=== PATIENT | female | born 1975 | race Caucasian/White ===

== ENCOUNTER 2017-02-25 17:08 | Observation (INO) | payer OTHER ==
[~2017-02-25] VITALS: Ht 154.9 cm; Wt 78.9 kg
[2017-02-25 17:26] VITALS: BP 124/99
--- NOTE | 2017-02-25 17:32 | NUR ---
PT TRIAGED, AMBULATED TO ER LOBBY; WAITING FOR ER BED. ERMD AWARE OF PATIENT STATUS.
--- NOTE | 2017-02-25 19:52 | NUR ---
PT TAKEN TO BED 2
--- NOTE | 2017-02-25 19:55 | NUR ---
41/F CAME IN W C/O VAGINAL BLEEDING X 3 WEEKS. PT REPORTS HX OF HEAVY BLEEDING AND HAS OBGYN FOLLOWUP TO BE SCHEDULED, BUT PT REPORTS SHE HAS NOT HAVE PROLONGED BLEEDING PROMPTING THIS ER VISIT. REPORTS INTERMITTENT LOWER ABD PAIN, DENIES ANY PAIN AT THIS TIME. ALSO REPORTS PRODUCTIVE COUGHING WITH GREEN SPUTUM AND FEVER X 4 DAYS. PT CURRENTLY AFEBRILE. PMH: TUBAL LIGATION,DENIES RX, TOOK TYLENOL AT 1300 TODAY
--- NOTE | 2017-02-25 20:54 | NUR ---
Jessica voss in ED - 02/25/17 at 2057 by ANNELIESE Ultrasound at bedside.
--- NOTE | 2017-02-25 21:04 | NUR ---
Ultrasound at bedside.
[2017-02-25 21:09] LABS: BASOPHILS # (AUTO) 0.2 K/uL (0.00-0.22); HEMATOCRIT 40.9 % (36-48); HEMOGLOBIN 13.4 g/dL (12.0-16.0); LYMPHOCYTES # (AUTO) 1.5 K/uL (2.5-16.5); MEAN CORPUSCULAR HEMOGLOBIN 28 pg (27-31); MEAN CORPUSCULAR HGB CONC 33 g/dL (33-37); MEAN CORPUSCULAR VOLUME 84 fL (80-94); MONOCYTES # (AUTO) 0.7 K/uL (0.8-1.0); NEUTROPHILS # (AUTO) 3.4 K/uL (1.8-7.7); PLATELET COUNT (AUTO) 275 K/uL (140-450); RED BLOOD CELL COUNT(AUTO) 4.86 MIL/uL (4.20-5.40); RED CELL DISTRIBUTION WIDTH 14.2 % (11.6-13.7); WHITE BLOOD COUNT (AUTO) 5.8 K/uL (4.8-10.8)
[2017-02-25 21:25] LABS: ANION GAP 12.7 (8-16); CARBON DIOXIDE 27.8 mmol/L (21-32); POTASSIUM 3.5 mmol/L (3.5-5.1)
[2017-02-25 21:31] LABS: ALBUMIN 3.7 g/dL (3.4-5.0); TOTAL BILIRUBIN 0.3 mg/dL (0.0-1.0)
[2017-02-25] MEDS ORDERED: ACETAMINOPHEN EXTRA STRENGTH 500 MG TAB ONE (22:08)
--- NOTE | 2017-02-25 22:30 | NUR ---
Patient appears to be resting comfortably in bed. Vital Signs within normal limits. Respirations even and unlabored.
[2017-02-25] MEDS ORDERED: MORPHINE SULFATE 2 MG/ML SYR IVP PRN (22:35)
[2017-02-25] MEDS ORDERED: ONDANSETRON 4 MG/2 ML VIAL IVP PRN (22:35)
[2017-02-25] MEDS ORDERED: ACETAMINOPHEN EXTRA STRENGTH 500 MG TAB PO PRN (22:35)
--- NOTE | 2017-02-25 23:11 | NUR ---
Patient will be admitted to care of [facility]. Admited to MS. Will go to room 104B. Belongings list completed. BEDSIDE Report to EDIL GIL. IV SL AND PATENT
--- NOTE | 2017-02-25 23:30 | NUR ---
PT ARRIVED FROM ER VIA WHEELCHAIR. PT IS AAOX4, ON ROOM AIR. NO SIGNS OF ACUTE DISTRESS NOTED, RESPIRATION EVEN AND UNLABORED. IV ACCESS INTACT, PATENT AND ASYMPTOMATIC. MRSA COLLECTED. PT IS AMBULATORY WITH BATHROOM PRIVILEGES. BED IN LOW POSITION, BILATERAL HALF SIDE RAIL UP, CALL LIGHT WITHIN REACH, WILL CONTINUE TO MONITOR.
[2017-02-26] VITALS: BP 116/70
--- NOTE | 2017-02-26 06:36 | NUR ---
PATIENT HAS BEEN SCREENED AND CATEGORIZED LOW NUTRITION RISK. PATIENT WILL BE SEEN WITHIN 7 DAYS OF ADMISSION. 03/03/17 KULWINDER AMEZCUA MS, RDN
--- NOTE | 2017-02-26 07:25 | NUR ---
ENDORSED PT TO AM NURSE FOR CONTINUITY OF CARE. PT IS IN STABLE CONDITION.
--- NOTE | 2017-02-26 07:27 | NUR ---
RECEIVED PATIENT REPORT AT BEDSIDE FROM NIGHT NURSE. PATIENT IS AAOX4 AND SHOWS NO S/S OF ACUTE DISTRESS AT THIS TIME. SKIN INTACT. DENIES PAIN. MODERATE VAGINAL BLEEDING SEEN ON PAD, PATIENT STATES, "I AM ON MY PERIOD." NOTED IV ON THE LEFT HAND SL. PATIENT WAS EXPLAINED POC FOR TODAY AND VERBALIZED UNDERSTANDING. SAFETY PRECAUTIONS IN PLACE, BED IN LOW POSITION WITH CALL LIGHT WITHIN REACH.
[2017-02-26 07:42] LABS: BASOPHILS # (AUTO) 0.1 K/uL (0.00-0.22); BASOPHILS % (AUTO) 3.5 % (0.0-2.0); EOSINOPHILS % (AUTO) 0.5 % (0.0-4.0); HEMATOCRIT 40.6 % (36-48); HEMOGLOBIN 13.4 g/dL (12.0-16.0); LYMPHOCYTES # (AUTO) 1.7 K/uL (2.5-16.5); LYMPHOCYTES % (AUTO) 40.5 % (20.5-51.1); MEAN CORPUSCULAR HEMOGLOBIN 28 pg (27-31); MEAN CORPUSCULAR HGB CONC 33 g/dL (33-37); MEAN CORPUSCULAR VOLUME 84 fL (80-94); MONOCYTES # (AUTO) 0.5 K/uL (0.8-1.0); MONOCYTES % (AUTO) 10.9 % (1.7-9.3); NEUTROPHILS % (AUTO) 44.6 % (42.2-75.2); PLATELET COUNT (AUTO) 240 K/uL (140-450); RED BLOOD CELL COUNT(AUTO) 4.87 MIL/uL (4.20-5.40); RED CELL DISTRIBUTION WIDTH 14.2 % (11.6-13.7); WHITE BLOOD COUNT (AUTO) 4.3 K/uL (4.8-10.8)
[2017-02-26 08:00] VITALS: BP 139/75
[2017-02-26 08:03] LABS: ALBUMIN 3.6 g/dL (3.4-5.0); ANION GAP 13.6 (8-16); CARBON DIOXIDE 26.5 mmol/L (21-32); CREATININE 0.9 mg/dL (0.6-1.3); POTASSIUM 3.1 mmol/L (3.5-5.1); TOTAL BILIRUBIN 0.2 mg/dL (0.0-1.0)
--- NOTE | 2017-02-26 09:19 | NUR ---
RECEIVED ORDERS FROM DR SRIVASTAVA FOR CXR FOR COUGH, ROBITUSSIN 10ML Q6H PRN FOR COUGH, AND INFLUENZA A AND B. WILL FOLLOW THROUGH WITH ORDERS.
[2017-02-26] MEDS ORDERED: guaiFENesin DM 200/20 MG-10 ML 10 ML UDC PO PRN (09:20)
--- NOTE | 2017-02-26 09:42 | NUR ---
PATIENT C/O HEADACHE AND COUGH. GAVE PATIENT ROBITUSSIN DM 10 ML AND TYLENOL 500MG PO. PATIENT'S NEEDS MET AT THIS TIME. BED IN LOW POSITION WITH CALL LIGHT WITHIN REACH.
[2017-02-26] MEDS ORDERED: POTASSIUM CHLORIDE 10 MEQ TABER PO SCH (11:00)
[2017-02-26] MEDS ORDERED: DEXT5SYR3 PO (11:16)
[2017-02-26] MEDS ORDERED: ACET-2166 PO (11:16)
--- NOTE | 2017-02-26 11:20 | NUR ---
PATIENT NOTIFIED OF DC ORDER. PATIENT VERBALIZED UNDERSTANDING.
--- NOTE | 2017-02-26 12:45 | NUR ---
PT HAS BEEN DISCHARGED. ALL DISCHARGE INSTRUCTIONS WERE GIVEN. ALL QUESTIONS ANSWERED. PATIENT VERBALIZED UNDERSTANDING OF CONTINUITY OF CARE. ALL BELONGINGS IN PATIENTS POSSESSION, IV DISCONTINUED WITH CANNULA INTACT. WRISTBANDS REMOVED. PATIENT REFUSED WHEELCHAIR AND AMB OFF UNIT WITH FAMILY PRESENT AT SIDE. PATIENT LEFT IN STABLE CONDITION.
== END 2017-02-26 12:45 | disposition home or self-care (01) ==
LOC: MED 17:08 → MTU 22:37
PROVIDERS: ADMIT Hospitalist; ATTEND Hospitalist
DX: R05 Cough (principal); R50.9 Fever, unspecified; N89.8 Other specified noninflammatory disorders of vagina; Z85.43 Personal history of malignant neoplasm of ovary; Z80.41 Family history of malignant neoplasm of ovary
CPT/HCPCS: 36415; 76830; 80053; 85025; 85610; 85730; 86304; 86900; 86901; 87081; 87804; 99285; G0378; Q0092

== ENCOUNTER 2017-05-20 08:30 | Emergency (ER) | payer OTHER ==
[~2017-05-20] VITALS: Ht 154.9 cm; Wt 82.1 kg
[~2017-05-20 08:30] MED LIST: ACET-2166 PO; DEXT5SYR3 PO
[2017-05-20 08:39] VITALS: BP 134/90
[2017-05-20] MEDS ORDERED: MORPHINE SULFATE 4 MG/ML SYR IM ONE (08:50)
[2017-05-20] MEDS ORDERED: KETOROLAC 60 MG/2 ML VIAL IM ONE (08:50)
--- NOTE | 2017-05-20 09:00 | NUR ---
41/F BIB C/O LEFT LOWER BACK SHARP PAIN RADIATS TO LLL X 5 DAYS. HX : WILLIAM 7 YRS AGO & L SCIATICA IN 2006. DENIES N/V/D; SKIN IS PINK/WARM/DRY; AAOX4 WITH EVEN AND STEADY GAIT; LUNGS CLEAR BL; HR EVEN AND REGULAR. PATIENT STATES PAIN OF 10/10 AT THIS TIME. PATIENT POSITIONED FOR COMFORT; HOB ELEVATED; BEDRAILS UP X2; BED DOWN. ER MD MADE AWARE OF PT STATUS.
--- NOTE | 2017-05-20 09:33 | NUR ---
Patient STATED LEFT LOWER BACK PAIN 5/10 AT THIS TIME. PT appears to be resting comfortably in bed. BP 131/55; DENIES GONSALEZ AT THIS TIME, Respirations even and unlabored.WILL CONTINUE TO MONITOR
[2017-05-20 10:05] VITALS: BP 147/78
--- NOTE | 2017-05-20 10:05 | NUR ---
Patient discharged with v/s stable. Written and verbal after care instructions given and explained. Patient alert, oriented and verbalized understanding of instructions. Ambulatory with to car. All questions addressed prior to discharge. ID band removed. Patient advised to follow up with PMD. Rx of NORCO 5MG-325GM TAB, FLEXERIL 10 MG TAB & IBUPROFEN 600MG TAB given. Patient educated on indication of medication including possible reaction and side effects. Opportunity to ask questions provided and answered.
== END 2017-05-20 10:05 | disposition home or self-care (01) ==
LOC: MED 08:30
DX: M54.42 Lumbago with sciatica, left side (principal); Z88.5 Allergy status to narcotic agent
CPT/HCPCS: 81002; 81025; 96372; 99284; J1885; J2270

== ENCOUNTER 2017-10-20 19:50 | Emergency (ER) | payer OTHER ==
[~2017-10-20] VITALS: Ht 154.9 cm; Wt 79.4 kg
[2017-10-20 19:53] VITALS: BP 157/92
--- NOTE | 2017-10-20 20:06 | NUR ---
Patient to bed 11. RN evaluating patient at bedside.
--- NOTE | 2017-10-20 20:10 | NUR ---
PT PRESENTED ER WITH C/O PAIN AND DIZZINESS. PT HAS A GONSALEZ X 3 HOURS. PT STATED SHE FEELS COLD AND CLAMMY AND GETS SHAKY. MEDICAL HX IS HTN, THYROID AND CHRONIC BACK PAIN AND PRE-DIABETIC. ALLERGIES IS CODEINE. HAS SOME NAUSEA, DENIES VOMITING; SKIN IS PINK/WARM/DRY; AAOX4 WITH EVEN AND STEADY GAIT; HR EVEN AND REGULAR; PT DENIES ANY FEVER, CP, SOB, OR COUGH AT THIS TIME; PATIENT STATES PAIN OF 5/10 AT THIS TIME; VSS; PATIENT POSITIONED FOR COMFORT; HOB ELEVATED; BEDRAILS UP X2; BED DOWN. ER MD MADE AWARE OF PT STATUS.
[2017-10-20] MEDS ORDERED: fentaNYL 0.05 MG/ML VIAL IVP ONE (21:00)
[2017-10-20] MEDS ORDERED: ONDANSETRON 4 MG/2 ML VIAL IVP ONE (21:00)
[2017-10-20] MEDS ORDERED: MECLIZINE 25 MG TAB PO ONE (21:00)
--- NOTE | 2017-10-20 21:03 | NUR ---
engineering specialist technician at bedside for CXR.
--- NOTE | 2017-10-20 21:26 | NUR ---
PT GOING TO CT
[2017-10-20 21:30] LABS: BASOPHILS % (AUTO) 0.3 % (0.0-2.0); EOSINOPHILS % (AUTO) 0.3 % (0.0-4.0); HEMATOCRIT 34.8 % (36-48); HEMOGLOBIN 11.3 g/dL (12.0-16.0); LYMPHOCYTES # (AUTO) 1.3 K/uL (2.5-16.5); MEAN CORPUSCULAR HEMOGLOBIN 26 pg (27-31); MEAN CORPUSCULAR HGB CONC 33 g/dL (33-37); MEAN CORPUSCULAR VOLUME 79.5 fL (80-94); MONOCYTES # (AUTO) 0.5 K/uL (0.8-1.0); MONOCYTES % (AUTO) 4.5 % (1.7-9.3); NEUTROPHILS # (AUTO) 8.4 K/uL (1.8-7.7); NEUTROPHILS % (AUTO) 81.9 % (42.2-75.2); PLATELET COUNT (AUTO) 353 K/uL (140-450); RED BLOOD CELL COUNT(AUTO) 4.38 MIL/uL (4.20-5.40); RED CELL DISTRIBUTION WIDTH 17.1 % (11.6-13.7); WHITE BLOOD COUNT (AUTO) 10.2 K/uL (4.8-10.8)
[2017-10-20 21:43] LABS: ANION GAP 10.5 (8-16); CARBON DIOXIDE 25.4 mmol/L (21-32); CREATININE 0.7 mg/dL (0.6-1.3); POTASSIUM 3.9 mmol/L (3.5-5.1)
[2017-10-20 21:50] LABS: ALBUMIN 3.6 g/dL (3.4-5.0); TOTAL BILIRUBIN 0.3 mg/dL (0.0-1.0)
[2017-10-20 21:57] LABS: CREATINE KINASE MB 0.2 ng/mL (0-3.6)
[2017-10-20] MEDS ORDERED: KETOROLAC 30 MG/ML VIAL IVP ONE (23:05)
[2017-10-21 00:13] VITALS: BP 146/77
--- NOTE | 2017-10-21 00:13 | NUR ---
Patient discharged with v/s stable. Written and verbal after care instructions given and explained. Patient alert, oriented and verbalized understanding of instructions. Ambulatory with steady gait. All questions addressed prior to discharge. ID band removed. Patient advised to follow up with PMD. Rx of MECLIZINE HYDROCHLORIDE was given. Patient educated on indication of medication including possible reaction and side effects. Opportunity to ask questions provided and answered.
== END 2017-10-21 00:13 | disposition home or self-care (01) ==
LOC: MED 19:50
DX: R42 Dizziness and giddiness (principal); R94.31 Abnormal electrocardiogram [ECG] [EKG]; Z88.8 Allergy status to other drugs, medicaments and biological substances; Z79.899 Other long term (current) drug therapy
CPT/HCPCS: 36415; 70450; 71045; 80053; 81002; 81025; 82550; 82553; 82948; 83690; 84484; 85025; 93005; 96374; 96375; 99285; J1885; J2405; J3010; J8597; Q0092

== ENCOUNTER 2018-05-21 22:00 | Emergency (ER) | payer OTHER ==
[~2018-05-21] VITALS: Ht 154.9 cm; Wt 80.9 kg
[2018-05-21 22:07] VITALS: BP 139/85
--- NOTE | 2018-05-21 22:10 | NUR ---
TO BED # 04 AMBULATORY, REPORT GIVEN TO COLE GIL
--- NOTE | 2018-05-21 22:16 | NUR ---
Patient being evaluated by physician at bedside.
--- NOTE | 2018-05-21 22:18 | NUR ---
PT C/O LUMBAR REGION BACK PAIN 09/05 ACHING SINCE MONDAY S/P MOVING FURNITURE. DENIES RADIATION. HX OF SCIATICA BUT STATES IT FEELS DIFFERENT. ABLE TO AMBULATE WITH STEADY GAIT.
[2018-05-21] MEDS ORDERED: KETOROLAC 30 MG/ML VIAL IM ONE (23:30)
--- NOTE | 2018-05-21 23:37 | NUR ---
PT TAKEN TO CT
--- NOTE | 2018-05-21 23:45 | NUR ---
PT BACK FROM CT
[2018-05-22 00:39] VITALS: BP 135/75
== END 2018-05-22 00:39 | disposition home or self-care (01) ==
LOC: MED 22:00
DX: S39.012A Strain of muscle, fascia and tendon of lower back, initial encounter (principal); Z88.5 Allergy status to narcotic agent; Z79.899 Other long term (current) drug therapy; Z79.1 Long term (current) use of non-steroidal anti-inflammatories (NSAID); X50.9XXA Other and unspecified overexertion or strenuous movements or postures, initial encounter; Y93.89 Activity, other specified; Y92.89 Other specified places as the place of occurrence of the external cause; Y99.8 Other external cause status
CPT/HCPCS: 72131; 81002; 81025; 96372; 99284; J1885

== ENCOUNTER 2018-08-12 21:30 | Emergency (ER) | payer OTHER ==
[~2018-08-12] VITALS: Ht 154.9 cm; Wt 80.7 kg
[2018-08-12 21:40] VITALS: BP 140/74
--- NOTE | 2018-08-12 21:40 | NUR ---
PT EVALUATED BY DR EVANS. C/O LOWER BACK PAIN >6 MONTHS. STATES LOWER BACK PAIN TREATED AND RETURNS. NON-RADIATING. CMS INTACT BILAT LOWER EXTREMITIES. VSS. POSITIONED IN BED FOR COMFORT. CONTINUE TO MONITOR.
--- NOTE | 2018-08-12 21:40 | NUR ---
TO BED # 06 AMBULATORY
[2018-08-12] MEDS ORDERED: fentaNYL 0.05 MG/ML VIAL IM ONE (22:45)
[2018-08-12] MEDS ORDERED: LORazepam 2 MG/ML VIAL IM ONE (22:45)
--- NOTE | 2018-08-13 00:13 | NUR ---
DISCHARGE PAPERS GIVEN TO PT. 04/08 LOWER BACK PAIN BUT TOLLERABLE. CMS INTACT BILAT LOWER EXTREMITIES. RX OF TRAMADOL GIVEN. SIDE EFFECTS EXPLAINED. INSTRUCTED TO F/U WITH PCP AND WHEN TO RETURN TO ER. PT VERBALLIZED UNDERSTANDING OF DC INSTRUCTIONS. ALL QUESTIONS ANSWERED.
== END 2018-08-13 00:13 | disposition home or self-care (01) ==
LOC: MED 21:30
DX: S39.012A Strain of muscle, fascia and tendon of lower back, initial encounter (principal); Z88.5 Allergy status to narcotic agent; Z79.1 Long term (current) use of non-steroidal anti-inflammatories (NSAID); Z79.899 Other long term (current) drug therapy; X58.XXXA Exposure to other specified factors, initial encounter; Y93.89 Activity, other specified; Y92.89 Other specified places as the place of occurrence of the external cause; Y99.0 Civilian activity done for income or pay
CPT/HCPCS: 96372; 99283; J2060; J3010

== ENCOUNTER 2019-01-15 12:07 | Emergency (ER) | payer OTHER ==
[~2019-01-15] VITALS: Ht 154.9 cm; Wt 80.3 kg
[2019-01-15 12:31] VITALS: BP 152/60
--- NOTE | 2019-01-15 12:31 | NUR ---
Patient ambulated to bed 8. RN evaluating patient at bedside.
--- NOTE | 2019-01-15 12:52 | NUR ---
43/F requesting to have her blood pressure checked. Pt states she was at her doctor's office to have her blood pressure checked but he was not in office. Pt denies any changes in vision. Denies headache. Denies chest pain or sob. AOX4, clear speech. Hx denies
[2019-01-15 13:40] LABS: BASOPHILS % (AUTO) 0.4 % (0.0-2.0); EOSINOPHILS # (AUTO) 0.1 K/uL (0-0.4); EOSINOPHILS % (AUTO) 0.8 % (0.0-4.0); HEMOGLOBIN 10.2 g/dL (12.0-16.0); LYMPHOCYTES # (AUTO) 2.5 K/uL (2.5-16.5); MEAN CORPUSCULAR HEMOGLOBIN 25 pg (27-31); MEAN CORPUSCULAR HGB CONC 32 g/dL (33-37); MEAN CORPUSCULAR VOLUME 77.2 fL (80-94); MONOCYTES # (AUTO) 0.6 K/uL (0.8-1.0); MONOCYTES % (AUTO) 7.4 % (1.7-9.3); NEUTROPHILS # (AUTO) 4.7 K/uL (1.8-7.7); NEUTROPHILS % (AUTO) 59.4 % (42.2-75.2); PLATELET COUNT (AUTO) 342 K/uL (140-450); RED BLOOD CELL COUNT(AUTO) 4.15 MIL/uL (4.20-5.40); RED CELL DISTRIBUTION WIDTH 18.6 % (11.6-13.7); WHITE BLOOD COUNT (AUTO) 7.9 K/uL (4.8-10.8)
[2019-01-15 13:45] LABS: APPEARANCE,URINE HAZY (CLEAR); BILIRUBIN,URINE NEGATIVE (NEGATIVE); BLOOD, URINE NEGATIVE (NEGATIVE); COLOR,URINE YELLOW (YELLOW); LEUKOCYTE ESTERASE ,URINE TRACE (NEGATIVE); NITRITE, URINE NEGATIVE (NEGATIVE); UGLUCOSE NEGATIVE (NEGATIVE)
[2019-01-15 13:55] LABS: ANION GAP 13.7 (8-16); CARBON DIOXIDE 25.5 mmol/L (21-32); CREATININE 0.7 mg/dL (0.6-1.3); POTASSIUM 4.2 mmol/L (3.5-5.1)
[2019-01-15 13:57] LABS: RBC,URINE 0-5 /HPF (0-5)
[2019-01-15 14:11] LABS: ALBUMIN 3.4 g/dL (3.4-5.0); THYROID STIMULATING HORMONE 2.98 uIU/mL (0.34-3.74); TOTAL BILIRUBIN 0.2 mg/dL (0.0-1.0)
[2019-01-15 15:03] VITALS: BP 136/76
--- NOTE | 2019-01-15 15:03 | NUR ---
Patient discharged with v/s stable. Written and verbal after care instructions given and explained. Patient verbalized understanding. Ambulatory with steady gait. All questions addressed prior to discharge. Advised to follow up with PMD.
== END 2019-01-15 15:03 | disposition home or self-care (01) ==
LOC: MED 12:07
DX: R53.83 Other fatigue (principal); D64.9 Anemia, unspecified; G89.29 Other chronic pain; M54.9 Dorsalgia, unspecified; Z98.890 Other specified postprocedural states; Z79.899 Other long term (current) drug therapy; Z88.5 Allergy status to narcotic agent
CPT/HCPCS: 36415; 71045; 80053; 81001; 81025; 84443; 84484; 85025; 87086; 93005; 99284; Q0092

== ENCOUNTER 2019-08-31 15:08 | Emergency (ER) | payer OTHER ==
[~2019-08-31] VITALS: Ht 154.9 cm; Wt 72.6 kg
[2019-08-31 15:28] VITALS: BP 129/86
--- NOTE | 2019-08-31 15:36 | NUR ---
URINE CUP HANDED TO PT FOR SAMPLE
--- NOTE | 2019-08-31 16:51 | NUR ---
PT TAKEN TO BED 2. AMBULATED WITH USE OF WALKER.
[2019-08-31] MEDS ORDERED: KETOROLAC 60 MG/2 ML VIAL IM ONE (17:05)
[2019-08-31] MEDS ORDERED: DIAZEPAM 5 MG TAB PO ONE (17:05)
--- NOTE | 2019-08-31 17:10 | NUR ---
43/F C/O EXACERBATION OF LOWER BACK PAIN X >1 WK---SEEN BY PMD RECENTLY ORDERED WALKER AND MOTRIN----PT IS AMBULATORY WITH USE OF WALKER. NO RECENT INJURY---PAIN WORSENING PT HAS HAD IMAGING DONE OUTPATIENT. HX---BACK PAIN, HTN RX---TRAMADOL 50MG, MELOXICAM 15MG, BACLOFEN 20MG, HYDROCHLOROTHIAZINE 25MG, IBUPROFEN 800MG, TYLENOL 500MG
--- NOTE | 2019-08-31 18:05 | NUR ---
Patient discharged with v/s stable. Written and verbal after care instructions given and explained. Patient verbalized understanding. Ambulatory with steady gait WITH WALKER. TO WAIT IN LOBBY FOR TO PICK HER UP. All questions addressed prior to discharge. Advised to follow up with PMD IN 2-3 DAYS.
[2019-08-31 18:06] VITALS: BP 115/62
== END 2019-08-31 18:05 | disposition home or self-care (01) ==
LOC: MED 15:08
DX: M54.5 Low back pain (principal); Z88.6 Allergy status to analgesic agent; Z79.899 Other long term (current) drug therapy
CPT/HCPCS: 81002; 81025; 96372; 99283; J1885

== ENCOUNTER 2020-04-13 07:22 | Emergency (ER) | payer OTHER ==
[~2020-04-13] VITALS: Ht 154.9 cm; Wt 84.8 kg
[2020-04-13 07:25] VITALS: BP 128/81
--- NOTE | 2020-04-13 07:31 | NUR ---
AMBULATED TO BED 4
--- NOTE | 2020-04-13 07:35 | NUR ---
44 Y/O F BROUGHT IN FROM HOME WITH C/C RIGHT HAND NUMBNESS. PT STATES THREE WEEKS AGO, SHE WAS WATERING HER GARDEN AND BEGAN EXPERIENCING NUMBNESS AND TINGLING TO HER HAND. PT STATES IT WOULD GO AWAY, HOWEVER, THREE DAYS AGO, THE NUMBNESS/TINGLING IS CONSTANT. PT DESCRIBES TINGLING "ANTS IN HER ARM," CONSTANT, NON-RADIATING. PT DENIES TAKING ANY MEDICATIONS PRIOR. PT STATES ASSOCIATED BLURRY VISION. PT DENIES N/V/, HEADACHE, SOB, CHEST PAIN, FEVER/CHILLS, COLD-LIKE SYMPTOMS, COUGH. PT PLACED ONTO TRAFFIC AGENT. CAPILLARY REFILL IMMEDIATE. NO EDEMA NOTED TO RIGHT HAND. LUNG SOUNDS CTA. RESPIRATIONS EVEN/UNLABORED. BED LOCKED IN LOWEST POSITION, SIDE RAILS X 1. PMH: HTN, CHRONIC BACK PAIN MEDS: LISINOPRIL (LAST TAKEN 01/2020), IBUPROFEN, FLEXERIL (LAST TAKEN 11/2019) ALLERGIES: CODEINE
--- NOTE | 2020-04-13 07:48 | NUR ---
DR. BRYANT IS EVALUATING PATIENT AT BEDSIDE.
[2020-04-13] MEDS ORDERED: KETOROLAC 30 MG/ML VIAL IM ONE (08:00)
[2020-04-13] MEDS ORDERED: diazePAM 5 MG TAB PO ONE (08:00)
--- NOTE | 2020-04-13 08:11 | NUR ---
BOBBIN PRESSER DISCONNECTED PT FROM PLANER HAND, TRANSPORTED PT VIA WHEELCHAIR TO CT.
--- NOTE | 2020-04-13 08:23 | NUR ---
PT RETURNED FROM CT VIA WHEELCHAIR. PT AMBULATED BACK ONTO BED AND PLACED ONTO ELECTRICAL WIRER. BLANKET PROVIDED AND LIGHTS DIM PER PT REQUEST. RESPIRATIONS EVEN/UNLABORED. BED LOCKED IN LOWEST POSITION, SIDE RAILS X 1, CALL LIGHT IN REACH.
--- NOTE | 2020-04-13 08:52 | NUR ---
PT PRESENTS IN SEMI-FOWLERS POSITION WITH BOTH EYES CLOSED. PT STATES POSITIVE RELIEF WITH MEDICATION; PT STATES SHE IS ABLE TO MOVE HAND AND FINGERTIPS FREELY WITH "A LITTLE NUMBNESS" TO FINGER TIPS. PAIN 0/10. PRE WAVE ASSEMBLER IN PLACE. RESPIRATIONS EVEN/UNLABORED. BED LOCKED IN LOWEST POSITION, SIDE RAILS X 1, CALL LIGHT IN REACH.
[2020-04-13 09:23] VITALS: BP 121/56
--- NOTE | 2020-04-13 09:23 | NUR ---
Patient discharged with v/s stable. Written and verbal after care instructions given and explained. Patient alert, oriented and verbalized understanding of instructions. Ambulatory with steady gait. All questions addressed prior to discharge. ID band removed. Patient advised to follow up with PMD. Rx of VALIUM, NAPROSYN given. Patient educated on indication of medication including possible reaction and side effects. Opportunity to ask questions provided and answered.
== END 2020-04-13 09:23 | disposition home or self-care (01) ==
LOC: MED 07:22
DX: R20.2 Paresthesia of skin (principal); G89.29 Other chronic pain; M54.5 Low back pain; M79.601 Pain in right arm; I10 Essential (primary) hypertension; Z88.5 Allergy status to narcotic agent; Z79.899 Other long term (current) drug therapy
CPT/HCPCS: 70450; 72125; 96372; 99285; J1885

== ENCOUNTER 2020-08-29 20:30 | Emergency (ER) | payer OTHER ==
[~2020-08-29] VITALS: Ht 154.9 cm; Wt 80.3 kg
[2020-08-29 20:34] VITALS: BP 150/81
--- NOTE | 2020-08-29 20:34 | NUR ---
TO BED AMBULATORY
--- NOTE | 2020-08-29 20:40 | NUR ---
PT. IS A 44 Y/O FEMALE THAT CAME INTO ED WITH C/O OF IRRIATION IN VAGINA. PT. STATES THAT SHE HAS PAIN IN THE OUTER PART OF HER VAGINA WHEN WALKING. PT. STATES HER PAIN AT A 8/10 WHEN WALKING, BUT 0/10 WHEN LAYING IN BED. PER PT. THERE IS NO ABNORMAL DISCHARGE AND DENIES ITCHING/BURNING/URGENCY TO URINATE. DENIES N/V/D; SKIN IS PINK/WARM/DRY; AAOX4 WITH EVEN AND STEADY GAIT; HR EVEN AND REGULAR; PT DENIES ANY FEVER, CP, SOB, OR COUGH AT THIS TIME; VSS; PATIENT POSITIONED FOR COMFORT; HOB ELEVATED; BEDRAILS UP X2; BED DOWN. ER MADE AWARE OF PT STATUS. MED HX: ANEMIA ALLERGIES: CODEINE
--- NOTE | 2020-08-29 21:17 | NUR ---
HAN ALEXANDER AT BEDSIDE FOR MEDICAL EVALUATION.
--- NOTE | 2020-08-29 21:18 | NUR ---
Female Academic Dean accompanied female patient for vaginal exam.
[2020-08-29] MEDS ORDERED: IBUP-2213 PO (21:44)
[2020-08-29] MEDS ORDERED: CIPR500T4 PO (21:44)
[2020-08-29 21:49] VITALS: BP 150/81
--- NOTE | 2020-08-29 21:49 | NUR ---
Patient discharged with v/s stable. Written and verbal after care instructions given and explained. Patient alert, oriented and verbalized understanding of instructions. Ambulatory with steady gait. All questions addressed prior to discharge. ID band removed. Patient advised to follow up with PMD. Rx of CIPRO AND IBUPROFEN given. Patient educated on indication of medication including possible reaction and side effects. Opportunity to ask questions provided and answered.
== END 2020-08-29 21:49 | disposition home or self-care (01) ==
LOC: MED 20:30
DX: N39.0 Urinary tract infection, site not specified (principal); I10 Essential (primary) hypertension; Z98.890 Other specified postprocedural states; Z88.5 Allergy status to narcotic agent; Z79.899 Other long term (current) drug therapy
CPT/HCPCS: 81002; 81025; 99283

== ENCOUNTER 2020-12-15 21:03 | Emergency (ER) | payer OTHER ==
[~2020-12-15] VITALS: Ht 154.9 cm; Wt 79.4 kg
[~2020-12-15 21:03] MED LIST changes: +CIPR500T4 PO; +IBUP-2213 PO
[2020-12-15 21:18] VITALS: BP 157/89
--- NOTE | 2020-12-16 00:40 | NUR ---
SEEN AND EXAMINED BY HAN
--- NOTE | 2020-12-16 00:55 | NUR ---
SWAB FOR PAULINA SENT TO LAB
[2020-12-16 01:01] LABS: BASOPHILS % (AUTO) 0.5 % (0.0-2.0); EOSINOPHILS # (AUTO) 0.1 K/uL (0-0.4); EOSINOPHILS % (AUTO) 1.4 % (0.0-4.0); HEMATOCRIT 29.4 % (36-48); HEMOGLOBIN 9.2 g/dL (12.0-16.0); LYMPHOCYTES # (AUTO) 2.4 K/uL (2.5-16.5); LYMPHOCYTES % (AUTO) 33.5 % (20.5-51.1); MEAN CORPUSCULAR HEMOGLOBIN 23 pg (27-31); MEAN CORPUSCULAR HGB CONC 31 g/dL (33-37); MEAN CORPUSCULAR VOLUME 72.5 fL (80-94); MONOCYTES # (AUTO) 0.8 K/uL (0.8-1.0); MONOCYTES % (AUTO) 11.3 % (1.7-9.3); NEUTROPHILS # (AUTO) 3.8 K/uL (1.8-7.7); NEUTROPHILS % (AUTO) 53.3 % (42.2-75.2); PLATELET COUNT (AUTO) 357 K/uL (140-450); RED BLOOD CELL COUNT(AUTO) 4.05 MIL/uL (4.20-5.40); RED CELL DISTRIBUTION WIDTH 19.9 % (11.6-13.7); WHITE BLOOD COUNT (AUTO) 7.1 K/uL (4.8-10.8)
[2020-12-16 01:10] LABS: ANION GAP 10.7 (8-16); CARBON DIOXIDE 30.2 mmol/L (21-32); POTASSIUM 3.9 mmol/L (3.5-5.1)
[2020-12-16] MEDS ORDERED: NACL 0.9% 1,000 ML IV SCH (03:10)
--- NOTE | 2020-12-16 06:00 | NUR ---
RECEIVED IN BED 12 FROM [facility] WITH C/O SOB. IV PRESENT RIGHT A/C, 20G. PT STATES "I FEEL BETTER"
--- NOTE | 2020-12-16 07:30 | NUR ---
REPORT RECEIVED FROM DIPIKA GIL FOR CONTINUITY OF CARE
[2020-12-16] MEDS ORDERED: NAPR-1704 PO (08:47)
[2020-12-16 09:00] VITALS: BP 145/75
== END 2020-12-16 09:00 | disposition home or self-care (01) ==
LOC: MED 21:03
DX: R07.9 Chest pain, unspecified (principal); I10 Essential (primary) hypertension; Z88.5 Allergy status to narcotic agent; Z20.822 Contact with and (suspected) exposure to COVID-19
CPT/HCPCS: 36415; 71045; 71275; 80048; 84484; 85025; 85379; 87426; 93005; 96360; 96361; 99285; Q9967

== ENCOUNTER 2021-06-12 06:47 | Emergency (ER) | payer OTHER ==
[~2021-06-12] VITALS: Ht 154.9 cm; Wt 78.5 kg
[~2021-06-12 06:47] MED LIST changes: +NAPR-1704 PO
[2021-06-12 06:52] VITALS: BP 142/82
--- NOTE | 2021-06-12 06:58 | NUR ---
Dr. Ardon at triage to exam patient.
[2021-06-12] MEDS ORDERED: METOCLOPRAMIDE 10 MG TAB PO ONE (07:00)
[2021-06-12] MEDS ORDERED: MECLIZINE 25 MG TAB PO ONE (07:00)
[2021-06-12] MEDS ORDERED: MECL-370 PO (07:01)
--- NOTE | 2021-06-12 07:01 | NUR ---
Patient ambulated to bed 3.
--- NOTE | 2021-06-12 07:57 | NUR ---
45 years old female with history of vertigo presents to er with dizziness, no acute distress will continue to monitor after med administered.
[2021-06-12 08:48] LABS: ANION GAP 10.3 (8-16); CARBON DIOXIDE 25.1 mmol/L (21-32); CREATININE 0.8 mg/dL (0.6-1.3); POTASSIUM 3.4 mmol/L (3.5-5.1)
--- NOTE | 2021-06-12 09:47 | NUR ---
Patient appears to be resting comfortably in bed. Vital Signs within normal limits. Respirations even and unlabored. no dizziness, no lightheaded. denies pain no blurry vision.
[2021-06-12 12:31] VITALS: BP 130/70
== END 2021-06-12 12:31 | disposition home or self-care (01) ==
LOC: MED 06:47
DX: R42 Dizziness and giddiness (principal)
CPT/HCPCS: 36415; 71275; 80048; 81025; 84484; 85379; 93005; 99285; J8597; Q9967

== ENCOUNTER 2023-03-24 00:35 | Emergency (ER) | payer OTHER ==
[~2023-03-24] VITALS: Ht 154.9 cm; Wt 83.9 kg
[~2023-03-24 00:35] MED LIST changes: +MECL-370 PO
[2023-03-24 00:45] VITALS: BP 164/108; PULSE 80; RESP 16; TEMP 97.8; O2SAT 98
[2023-03-24 01:11] VITALS: BP 155/79; PULSE 77; RESP 16
[2023-03-24 01:12] VITALS: O2SAT 98
== END 2023-03-24 02:22 | disposition home or self-care (01) ==
LOC: MED 00:35
DX: M54.50 Low back pain, unspecified (principal); I10 Essential (primary) hypertension; Z79.899 Other long term (current) drug therapy
CPT/HCPCS: 81002; 81025; 99282